=== PATIENT | male | born 1990 | race Two or more races ===

== ENCOUNTER 2022-05-30 22:08 | Emergency (ER) | payer OTHER ==
[2022-05-30 23:15] VITALS: BP 103/64; PULSE 71; RESP 19; TEMP 98.8; BMI 25.7
[2022-05-31] MEDS ORDERED: METHOCARBAMOL 500 MG TABLET PO ONE (00:42)
[2022-05-31] MEDS ORDERED: LIDOCAINE 5% TOPICAL PATCH TP ONE (00:42)
[2022-05-31] MEDS ORDERED: KETOROLAC TROMETHAMINE 15 MG/ML VIAL IM ONE (00:42)
[2022-05-31] MEDS ORDERED: METHOCARBAMOL 500 MG TABLET ONE (00:47)
[2022-05-31] MEDS ORDERED: LIDOCAINE 5% TOPICAL PATCH ONE (00:48)
[2022-05-31] MEDS ORDERED: KETOROLAC TROMETHAMINE 15 MG/ML VIAL ONE (00:48)
[2022-05-31] MEDS ORDERED: LIDOCAINE PATCH REMOVAL MC ONE (13:00)
== END 2022-05-31 01:57 | disposition home or self-care (01) ==
LOC: JER 22:08
PROC: 3E0233Z Introduction of Anti-inflammatory into Muscle, Percutaneous Approach (ICD-10-PCS; principal; 2022-05-30)
DX: S39.012A Strain of muscle, fascia and tendon of lower back, initial encounter (principal); X50.0XXA Overexertion from strenuous movement or load, initial encounter
CPT/HCPCS: 99284-25